=== PATIENT | male | born 1955 | race African-American/Black ===

== ENCOUNTER 2019-08-08 14:01 | Inpatient (IN) | payer MEDICAID, OTHER ==
[~2019-08-08] VITALS: Ht 154.7 cm; Wt 84.0 kg
[2019-08-08] MEDS ORDERED: MULT-1192 PO (14:09)
[2019-08-08] MEDS ORDERED: LOSA25TA41 PO (14:11)
[2019-08-08] MEDS ORDERED: METO50 PO (14:11)
[2019-08-08] MEDS ORDERED: P-EP-31 PO (14:11)
[2019-08-08] MEDS ORDERED: LORA10TA7 PO (14:11)
[2019-08-08] MEDS ORDERED: AMLO5TAB9 PO (14:11)
[2019-08-08 15:50] LABS: EOSINOPHILS % (AUTO) 1.5 % (1.0-6.0); HEMATOCRIT 39.9 % (41-53); HEMOGLOBIN 13.5 g/dL (13.5-17.5); LYMPHOCYTES % (AUTO) 30.6 % (22.0-44.0); MEAN CORPUSCULAR HEMOGLOBIN 36.3 pg (26.0-34.0); MEAN CORPUSCULAR HGB CONC 33.8 G/dL (31.0-37.0); MEAN CORPUSCULAR VOLUME 107 fL (80-100); MONOCYTES # (AUTO) 0.9 K/uL (0.1-1.0); MONOCYTES % (AUTO) 13.3 % (2.0-9.0); NEUTROPHILS # (AUTO) 3.5 K/uL (1.8-7.7); NEUTROPHILS % (AUTO) 53.6 % (40.0-70.0); PLATELET COUNT (AUTO) 130 K/uL (150-450); RED BLOOD CELL COUNT(AUTO) 3.71 MIL/uL (4.50-5.90); RED CELL DISTRIBUTION WIDTH 14.6 % (11.5-14.5)
[2019-08-08 15:59] LABS: CALCIUM, TOTAL 8.8 mg/dL (8.8-10.5); CREATININE 2.93 mg/dL (0.60-1.30); POTASSIUM 3.5 mmol/L (3.5-5.1)
[2019-08-08 16:05] LABS: ALBUMIN 2.5 g/dL (3.4-5.0); BILIRUBIN,TOTAL 1.3 mg/dL (0.1-1.0); TOTAL PROTEIN, SERUM 8.5 g/dL (6.4-8.2)
[2019-08-08 16:14] LABS: PLATELET MORPHOLOGY COMMENT DECREASED
[2019-08-08] MEDS ORDERED: ASPIRIN 81 MG CHEWABLE TABLET PO ONE (16:45)
[2019-08-08 17:43] LABS: AMPHET/METH SCREEN,URINE NEGATIVE (NEGATIVE); BARBITURATE SCREEN, URINE NEGATIVE (NEGATIVE); BENZODIAZEPINES SCREEN,URINE NEGATIVE (NEGATIVE); CANNABINOID SCREEN,URINE NEGATIVE (NEGATIVE); COCAINE SCREEN,URINE NEGATIVE (NEGATIVE); METHADONE SCREEN, URINE NEGATIVE (NEGATIVE); OPIATE SCREEN,URINE NEGATIVE (NEGATIVE)
[2019-08-08 17:44] LABS: PHENCYCLIDINE SCREEN,URINE NEGATIVE (NEGATIVE)
[2019-08-08] MEDS ORDERED: LORazepam 2 MG TABLET PO PRN (19:30)
[2019-08-08] MEDS ORDERED: HALOPERIDOL 5 MG TABLET PO PRN (19:30)
[2019-08-08] MEDS ORDERED: SODIUM CHLORIDE 0.9% 250 ML IV ONE (19:30)
[2019-08-08 21:15] VITALS: BP 155/96
[2019-08-08] MEDS: AmLODIPine BESYLATE 5 MG TABLET PO SCH (21:25)
[2019-08-08 21:46] VITALS: BP 155/96
[2019-08-08] MEDS: ZOLPIDEM TARTRATE 10 MG TABLET PO PRN (21:49)
[2019-08-08] MEDS ORDERED: PNEUMOCOCCAL VACCINE POLYVALENT 0.5 ML VIAL [PPSV23] IM ONE (22:15)
[2019-08-08] MEDS ORDERED: INFLUENZA VIRUS VACCINE QVS 2019-20 (3YR+)/PF 60 MCG/0.5 ML SYRINGE IM ONE (22:30)
[2019-08-09 08:53] VITALS: BP 165/106
[2019-08-09 09:03] VITALS: BP 165/106
[2019-08-09] MEDS: AmLODIPine BESYLATE 5 MG TABLET PO SCH (10:09)
[2019-08-09] MEDS: METOPROLOL TARTRATE 50 MG TABLET PO SCH (10:11)
[2019-08-09] MEDS ORDERED: ACETAMINOPHEN 325 MG TABLET PO PRN (10:15)
[2019-08-09] MEDS ORDERED: ALBUTEROL SULFATE HFA 90 MCG/PUFF 8 GM INHALER IH PRN (10:15)
[2019-08-09] MEDS ORDERED: CloNIDine HCL 0.1 MG TABLET PO PRN (10:15)
[2019-08-09] MEDS ORDERED: IBUPROFEN 400 MG TABLET PO PRN (10:15)
[2019-08-09] MEDS ORDERED: LOPERAMIDE HCL 2 MG CAPSULE PO PRN (10:15)
[2019-08-09] MEDS ORDERED: DOCUSATE SODIUM 100 MG CAPSULE PO PRN (10:15)
[2019-08-09] MEDS ORDERED: ONDANSETRON HCL 4 MG TABLET PO PRN (10:15)
[2019-08-09] MEDS ORDERED: NICOTINE 14 MG/24 HOUR PATCH TD PRN (10:15)
[2019-08-09] MEDS ORDERED: MAGNESIUM HYDROXIDE SUSPENSION 30 ML UDCUP PO PRN (10:15)
[2019-08-09] MEDS ORDERED: GuaiFENesin/D-METHORPHAN [SUGAR-FREE] 200-20MG/10 ML SYRUP UDCUP PO PRN (10:15)
[2019-08-09] MEDS ORDERED: PETROLATUM,WHITE 28 GM JELLY TP PRN (10:15)
[2019-08-09] MEDS ORDERED: MAG HYDROX/AL HYDROX/SIMETH ES 30 ML SUSPENSION UDCUP PO PRN (10:15)
[2019-08-09] MEDS ORDERED: OLANZapine 5 MG TABLET PO SCH (21:00)
[2019-08-09] MEDS: ZOLPIDEM TARTRATE 10 MG TABLET PO PRN (21:04)
[2019-08-09 22:18] VITALS: BP 144/90
[2019-08-09 22:22] VITALS: BP 144/90
[2019-08-10 09:00] VITALS: BP 112/78
[2019-08-10] MEDS: MULTIVITAMINS, THERAPEUTIC TABLET PO SCH (09:16)
[2019-08-10] MEDS: METOPROLOL TARTRATE 50 MG TABLET PO SCH (09:16)
[2019-08-10] MEDS: AmLODIPine BESYLATE 5 MG TABLET PO SCH (09:16)
[2019-08-10] MEDS: OLANZapine 5 MG TABLET PO SCH (12:17)
[2019-08-10 16:30] VITALS: BP 130/82
[2019-08-10] MEDS: ZOLPIDEM TARTRATE 10 MG TABLET PO PRN (20:36)
[2019-08-10] MEDS: OLANZapine 10 MG TABLET PO SCH (20:36)
[2019-08-11 08:00] VITALS: BP 133/100
[2019-08-11] MEDS: MULTIVITAMINS, THERAPEUTIC TABLET PO SCH (08:40)
[2019-08-11] MEDS: OLANZapine 5 MG TABLET PO SCH (08:41)
[2019-08-11] MEDS: AmLODIPine BESYLATE 5 MG TABLET PO SCH (08:41)
[2019-08-11] MEDS: METOPROLOL TARTRATE 50 MG TABLET PO SCH (08:41)
[2019-08-11 18:33] VITALS: BP 114/82
[2019-08-11] MEDS: OLANZapine 10 MG TABLET PO SCH (20:55)
[2019-08-12 07:49] LABS: CALCIUM, TOTAL 8.7 mg/dL (8.8-10.5); CREATININE 1.85 mg/dL (0.60-1.30); POTASSIUM 4.1 mmol/L (3.5-5.1)
[2019-08-12 08:59] VITALS: BP 120/42
[2019-08-12] MEDS: MULTIVITAMINS, THERAPEUTIC TABLET PO SCH (09:30)
[2019-08-12] MEDS: AmLODIPine BESYLATE 5 MG TABLET PO SCH (09:30)
[2019-08-12] MEDS: OLANZapine 5 MG TABLET PO SCH (09:30)
[2019-08-12] MEDS: METOPROLOL TARTRATE 50 MG TABLET PO SCH (09:30)
[2019-08-12 16:30] VITALS: BP 147/91
[2019-08-12] MEDS: OLANZapine 10 MG TABLET PO SCH (17:15)
[2019-08-12] MEDS: ZOLPIDEM TARTRATE 10 MG TABLET PO PRN (20:50)
[2019-08-13 01:26] VITALS: BP 130/99
[2019-08-13 08:49] VITALS: BP 139/83
[2019-08-13] MEDS: OLANZapine 10 MG TABLET PO SCH ×2 (09:25→17:00)
[2019-08-13] MEDS: AmLODIPine BESYLATE 5 MG TABLET PO SCH (09:26)
[2019-08-13] MEDS: MULTIVITAMINS, THERAPEUTIC TABLET PO SCH (09:26)
[2019-08-13] MEDS: METOPROLOL TARTRATE 50 MG TABLET PO SCH (09:26)
[2019-08-13] MEDS ORDERED: RisperiDONE 2 MG TABLET PO SCH (13:30)
[2019-08-13] MEDS ORDERED: ESCITALOPRAM OXALATE 20 MG TABLET PO SCH (13:30)
[2019-08-13] MEDS: BuPROPion HCL XL 150 MG ER TABLET PO SCH (14:29)
[2019-08-13 18:30] VITALS: BP 130/77
[2019-08-14 00:05] VITALS: BP_SYST 139; BP_SYST 159; BP_DIAS 69; BP_DIAS 75
[2019-08-14] MEDS: OLANZapine 10 MG TABLET PO SCH ×2 (08:29→16:38)
[2019-08-14] MEDS: AmLODIPine BESYLATE 5 MG TABLET PO SCH (08:29)
[2019-08-14] MEDS: MULTIVITAMINS, THERAPEUTIC TABLET PO SCH (08:29)
[2019-08-14] MEDS: BuPROPion HCL XL 150 MG ER TABLET PO SCH (08:29)
[2019-08-14] MEDS: METOPROLOL TARTRATE 50 MG TABLET PO SCH (08:29)
[2019-08-14 08:55] VITALS: BP 141/84
[2019-08-14 21:09] VITALS: BP 135/84
[2019-08-15 08:39] VITALS: BP 145/99
[2019-08-15] MEDS: AmLODIPine BESYLATE 5 MG TABLET PO SCH (08:43)
[2019-08-15] MEDS: MULTIVITAMINS, THERAPEUTIC TABLET PO SCH (08:43)
[2019-08-15] MEDS: METOPROLOL TARTRATE 50 MG TABLET PO SCH (08:43)
[2019-08-15] MEDS: OLANZapine 10 MG TABLET PO SCH ×2 (08:43→16:37)
[2019-08-15] MEDS: BuPROPion HCL XL 150 MG ER TABLET PO SCH (08:43)
[2019-08-15 17:54] VITALS: BP 142/91
[2019-08-15] MEDS: ZOLPIDEM TARTRATE 10 MG TABLET PO PRN (21:04)
[2019-08-16 01:00] VITALS: BP 155/99
[2019-08-16 06:23] LABS: CALCIUM, TOTAL 8.2 mg/dL (8.8-10.5); CREATININE 1.76 mg/dL (0.60-1.30); POTASSIUM 3.8 mmol/L (3.5-5.1)
[2019-08-16 08:53] VITALS: BP 130/81
[2019-08-16] MEDS: MULTIVITAMINS, THERAPEUTIC TABLET PO SCH (09:14)
[2019-08-16] MEDS: METOPROLOL TARTRATE 50 MG TABLET PO SCH (09:14)
[2019-08-16] MEDS: BuPROPion HCL XL 150 MG ER TABLET PO SCH (09:14)
[2019-08-16] MEDS: AmLODIPine BESYLATE 5 MG TABLET PO SCH (09:14)
[2019-08-16] MEDS: OLANZapine 10 MG TABLET PO SCH (09:14)
[2019-08-16] MEDS: OLANZapine 7.5 MG TABLET PO SCH (17:27)
[2019-08-16 17:58] VITALS: BP 129/80
[2019-08-17 09:03] VITALS: BP 97/61
[2019-08-17] MEDS: BuPROPion HCL XL 150 MG ER TABLET PO SCH (09:08)
[2019-08-17] MEDS: MULTIVITAMINS, THERAPEUTIC TABLET PO SCH (09:08)
[2019-08-17] MEDS: AmLODIPine BESYLATE 5 MG TABLET PO SCH (09:08)
[2019-08-17] MEDS: METOPROLOL TARTRATE 50 MG TABLET PO SCH (09:08)
[2019-08-17] MEDS: OLANZapine 7.5 MG TABLET PO SCH (09:09)
[2019-08-17 16:30] VITALS: BP_SYST 134; BP_SYST 97; BP_DIAS 61; BP_DIAS 77
[2019-08-17] MEDS: OLANZapine 10 MG TABLET PO SCH (16:35)
[2019-08-18 03:36] VITALS: BP 131/77
[2019-08-18 08:00] VITALS: BP 136/91
[2019-08-18] MEDS: BuPROPion HCL XL 150 MG ER TABLET PO SCH (09:36)
[2019-08-18] MEDS: AmLODIPine BESYLATE 5 MG TABLET PO SCH (09:36)
[2019-08-18] MEDS: OLANZapine 10 MG TABLET PO SCH (09:36)
[2019-08-18] MEDS: MULTIVITAMINS, THERAPEUTIC TABLET PO SCH (09:36)
[2019-08-18] MEDS: METOPROLOL TARTRATE 50 MG TABLET PO SCH (09:36)
[2019-08-18] MEDS ORDERED: OLAN10TA3 PO (10:58)
[2019-08-18] MEDS ORDERED: BUPR-93 PO (10:58)
== END 2019-08-18 15:17 | disposition home or self-care (01) | DRG 750 ==
LOC: EMS 14:05 → 3EI 19:55
PROVIDERS: ADMIT Psychiatry & Neurology Psychiatry; ATTEND Psychiatry & Neurology Psychiatry
DX: F25.9 Schizoaffective disorder, unspecified (principal); R45.851 Suicidal ideations; R74.0 Nonspecific elevation of levels of transaminase and lactic acid dehydrogenase [LDH]; Z23 Encounter for immunization; E78.5 Hyperlipidemia, unspecified; F10.10 Alcohol abuse, uncomplicated; F60.0 Paranoid personality disorder; I12.9 Hypertensive chronic kidney disease with stage 1 through stage 4 chronic kidney disease, or unspecified chronic kidney disease; N18.9 Chronic kidney disease, unspecified; Z59.0 Homelessness
CPT/HCPCS: 90686; 93005; G0480; J7050

== ENCOUNTER 2019-09-06 17:04 | Inpatient (IN) | payer MEDICAID, OTHER ==
[~2019-09-06] VITALS: Ht 175.3 cm; Wt 83.0 kg
[~2019-09-06 17:04] MED LIST: AMLO5TAB9 PO; BUPR-93 PO; METO50 PO; MULT-1192 PO; OLAN10TA3 PO
[2019-09-06] MEDS ORDERED: HALOPERIDOL 5 MG TABLET PO PRN (21:00)
[2019-09-06] MEDS ORDERED: AmLODIPine BESYLATE 5 MG TABLET PO ONE (21:30)
[2019-09-06] MEDS ORDERED: BuPROPion HCL XL 150 MG ER TABLET PO ONE (21:30)
[2019-09-06] MEDS ORDERED: OLANZapine 5 MG TABLET PO ONE (21:30)
[2019-09-06 21:53] LABS: APPEARANCE,URINE CLEAR (CLEAR); BILIRUBIN,URINE NEGATIVE (NEGATIVE); GLUCOSE, URINE (UA) 100 mg/dL (NEGATIVE); KETONES,URINE NEGATIVE (NEGATIVE); LEUKOCYTE ESTERASE ,URINE NEGATIVE (NEGATIVE); NITRATE,URINE NEGATIVE (NEGATIVE); OCCULT BLOOD,URINE NEGATIVE (NEGATIVE); PH,URINE 5.5 (5.0-8.0); PROTEIN,URINE NEGATIVE (NEGATIVE)
[2019-09-06 22:11] LABS: ANION GAP 8 mmol/L (8-16); CALCIUM, TOTAL 8.7 mg/dL (8.8-10.5); CARBON DIOXIDE 24 mmol/L (22-29); CHLORIDE 107 mmol/L (98-107); CREATININE 2.41 mg/dL (0.60-1.30); GLOMERULAR FILTR. RATE CALC 33 mL/min (>60); GLUCOSE,RANDOM 188 mg/dL (70-110); POTASSIUM 3.6 mmol/L (3.5-5.1); SODIUM SERUM 139 mmol/L (136-145); UREA NITROGEN, BLOOD 51 mg/dL (7-18)
[2019-09-06 22:13] LABS: AMPHET/METH SCREEN,URINE NEGATIVE (NEGATIVE); BARBITURATE SCREEN, URINE NEGATIVE (NEGATIVE); BENZODIAZEPINES SCREEN,URINE NEGATIVE (NEGATIVE); CANNABINOID SCREEN,URINE NEGATIVE (NEGATIVE); COCAINE SCREEN,URINE NEGATIVE (NEGATIVE); METHADONE SCREEN, URINE NEGATIVE (NEGATIVE); OPIATE SCREEN,URINE NEGATIVE (NEGATIVE); PHENCYCLIDINE SCREEN,URINE NEGATIVE (NEGATIVE)
[2019-09-06 22:17] LABS: ALANINE AMINOTRANSFERASE 162 U/L (12-78); ALBUMIN 2.4 g/dL (3.4-5.0); ALKALINE PHOSPHATASE 187 U/L (46-116); ASPARTATE AMINOTRANSFERASE 216 U/L (15-37); TOTAL PROTEIN, SERUM 8.7 g/dL (6.4-8.2)
[2019-09-06 22:30] LABS: BASOPHILS % (AUTO) 1.1 % (0.0-2.0); EOSINOPHILS % (AUTO) 3.3 % (1.0-6.0); HEMATOCRIT 38.1 % (41-53); MEAN CORPUSCULAR HEMOGLOBIN 36.8 pg (26.0-34.0); MEAN CORPUSCULAR HGB CONC 34.2 G/dL (31.0-37.0); MEAN CORPUSCULAR VOLUME 108 fL (80-100); MONOCYTES # (AUTO) 0.9 K/uL (0.1-1.0); MONOCYTES % (AUTO) 13.3 % (2.0-9.0); NEUTROPHILS # (AUTO) 3.8 K/uL (1.8-7.7); NEUTROPHILS % (AUTO) 53.3 % (40.0-70.0); PLATELET COUNT (AUTO) 122 K/uL (150-450); RED BLOOD CELL COUNT(AUTO) 3.55 MIL/uL (4.50-5.90); RED CELL DISTRIBUTION WIDTH 14.8 % (11.5-14.5)
[2019-09-06 23:03] LABS: BACTERIA,URINE None Seen /HPF (None Seen); RBC,URINE None Seen /HPF (0-2); SQUAMOUS EPITHELIAL CELL,UR Moderate /LPF (None Seen); WBC,URINE 0-2 /HPF (0-5)
[2019-09-07 03:11] LABS: CHOL/HDL RATIO 4.3 (4.2-7.3); CHOLESTEROL 165 mg/dL (131-200); HDL CHOLESTEROL 38 mg/dL (40-60); LDL CHOL (CALC.) 79 mg/dL (0-130); TRIGLYCERIDES 239 mg/dL (15-150)
[2019-09-07] MEDS ORDERED: ONDANSETRON HCL 4 MG TABLET PO PRN (07:00)
[2019-09-07] MEDS ORDERED: NICOTINE 14 MG/24 HOUR PATCH TD PRN (07:00)
[2019-09-07] MEDS ORDERED: PETROLATUM,WHITE 28 GM JELLY TP PRN (07:00)
[2019-09-07] MEDS ORDERED: ALBUTEROL SULFATE HFA 90 MCG/PUFF 8 GM INHALER IH PRN (07:00)
[2019-09-07] MEDS ORDERED: IBUPROFEN 400 MG TABLET PO PRN (07:00)
[2019-09-07] MEDS ORDERED: MAG HYDROX/AL HYDROX/SIMETH ES 30 ML SUSPENSION UDCUP PO PRN (07:00)
[2019-09-07] MEDS ORDERED: LOPERAMIDE HCL 2 MG CAPSULE PO PRN (07:00)
[2019-09-07] MEDS ORDERED: CloNIDine HCL 0.1 MG TABLET PO PRN (07:00)
[2019-09-07] MEDS ORDERED: GuaiFENesin/D-METHORPHAN [SUGAR-FREE] 200-20MG/10 ML SYRUP UDCUP PO PRN (07:00)
[2019-09-07] MEDS ORDERED: DOCUSATE SODIUM 100 MG CAPSULE PO PRN (07:00)
[2019-09-07] MEDS ORDERED: MAGNESIUM HYDROXIDE SUSPENSION 30 ML UDCUP PO PRN (07:00)
[2019-09-07 09:05] VITALS: BP 148/90
[2019-09-07] MEDS ORDERED: PNEUMOCOCCAL VACCINE POLYVALENT 0.5 ML VIAL [PPSV23] IM ONE (11:45)
[2019-09-07] MEDS: OLANZapine 10 MG TABLET PO SCH ×2 (13:54→17:45)
[2019-09-07] MEDS: BuPROPion HCL XL 150 MG ER TABLET PO SCH (13:55)
[2019-09-07 16:30] VITALS: BP 148/94
[2019-09-08 08:41] VITALS: BP 143/81
[2019-09-08] MEDS: METOPROLOL TARTRATE 50 MG TABLET PO SCH (09:59)
[2019-09-08] MEDS: BuPROPion HCL XL 150 MG ER TABLET PO SCH (09:59)
[2019-09-08] MEDS: AmLODIPine BESYLATE 5 MG TABLET PO SCH (10:00)
[2019-09-08] MEDS: OLANZapine 10 MG TABLET PO SCH ×2 (10:00→16:54)
[2019-09-08 20:14] VITALS: BP 109/71
[2019-09-09] MEDS: ZOLPIDEM TARTRATE 10 MG TABLET PO PRN (00:23)
[2019-09-09 05:00] VITALS: BP 148/91
[2019-09-09 09:40] VITALS: BP 145/103
[2019-09-09] MEDS: METOPROLOL TARTRATE 50 MG TABLET PO SCH (09:44)
[2019-09-09] MEDS: OLANZapine 10 MG TABLET PO SCH ×2 (09:44→17:05)
[2019-09-09] MEDS: BuPROPion HCL XL 150 MG ER TABLET PO SCH (09:44)
[2019-09-09] MEDS: AmLODIPine BESYLATE 5 MG TABLET PO SCH (09:44)
[2019-09-09 14:34] VITALS: BP 138/71
[2019-09-09 19:34] VITALS: BP 139/92
[2019-09-10] MEDS: LORazepam 2 MG TABLET PO PRN (00:55)
[2019-09-10 02:34] VITALS: BP 151/89
[2019-09-10 09:40] VITALS: BP 149/112
[2019-09-10] MEDS: AmLODIPine BESYLATE 5 MG TABLET PO SCH (09:44)
[2019-09-10] MEDS: OLANZapine 10 MG TABLET PO SCH ×2 (09:44→16:17)
[2019-09-10] MEDS: METOPROLOL TARTRATE 50 MG TABLET PO SCH (09:44)
[2019-09-10] MEDS: BuPROPion HCL XL 150 MG ER TABLET PO SCH (09:44)
[2019-09-10 13:01] VITALS: BP 128/76
[2019-09-10 19:35] VITALS: BP 139/78
[2019-09-11 08:00] VITALS: BP 114/69
[2019-09-11] MEDS: AmLODIPine BESYLATE 5 MG TABLET PO SCH (09:29)
[2019-09-11] MEDS: METOPROLOL TARTRATE 50 MG TABLET PO SCH (09:29)
[2019-09-11] MEDS: OLANZapine 10 MG TABLET PO SCH ×2 (09:29→16:03)
[2019-09-11] MEDS: BuPROPion HCL XL 150 MG ER TABLET PO SCH (09:29)
[2019-09-11 18:06] VITALS: BP 149/93
[2019-09-12 08:10] LABS: CALCIUM, TOTAL 8.4 mg/dL (8.8-10.5); CREATININE 2.13 mg/dL (0.60-1.30)
[2019-09-12] MEDS: BuPROPion HCL XL 150 MG ER TABLET PO SCH (09:54)
[2019-09-12] MEDS: METOPROLOL TARTRATE 50 MG TABLET PO SCH (09:54)
[2019-09-12] MEDS: OLANZapine 10 MG TABLET PO SCH (09:54)
[2019-09-12] MEDS: AmLODIPine BESYLATE 5 MG TABLET PO SCH (09:54)
[2019-09-12 10:35] VITALS: BP 147/92
[2019-09-12] MEDS ORDERED: BuPROPion HCL XL 150 MG ER TABLET PO ONE (13:15)
[2019-09-12 17:08] VITALS: BP 137/80
[2019-09-12] MEDS: ZOLPIDEM TARTRATE 10 MG TABLET PO PRN (20:19)
[2019-09-13] MEDS: BuPROPion HCL XL 150 MG ER TABLET PO SCH (09:20)
[2019-09-13] MEDS: METOPROLOL TARTRATE 50 MG TABLET PO SCH (09:21)
[2019-09-13] MEDS: AmLODIPine BESYLATE 5 MG TABLET PO SCH (09:22)
[2019-09-13 09:31] VITALS: BP 134/72
[2019-09-13] MEDS: OMEGA-3/DHA/EPA/FISH OIL 1,000 MG CAPSULE PO SCH ×2 (13:45→13:59)
[2019-09-13] MEDS: OLANZapine 10 MG TABLET PO SCH (16:15)
[2019-09-13 17:51] VITALS: BP 146/88
[2019-09-13] MEDS: ZOLPIDEM TARTRATE 10 MG TABLET PO PRN (22:14)
[2019-09-14] MEDS: LORazepam 2 MG TABLET PO PRN
[2019-09-14 00:02] VITALS: BP 138/71
[2019-09-14] MEDS: ACETAMINOPHEN 325 MG TABLET PO PRN ×2 (02:56→14:12)
[2019-09-14 07:28] LABS: HEMOGLOBIN A1C 6.7 % (4.5-6.2)
[2019-09-14 07:31] LABS: CALCIUM, TOTAL 8.6 mg/dL (8.8-10.5); CREATININE 1.94 mg/dL (0.60-1.30); POTASSIUM 4.2 mmol/L (3.5-5.1)
[2019-09-14] MEDS: AmLODIPine BESYLATE 5 MG TABLET PO SCH (08:11)
[2019-09-14] MEDS: OMEGA-3/DHA/EPA/FISH OIL 1,000 MG CAPSULE PO SCH (08:11)
[2019-09-14] MEDS: OLANZapine 10 MG TABLET PO SCH ×2 (08:11→16:21)
[2019-09-14] MEDS: METOPROLOL TARTRATE 50 MG TABLET PO SCH (08:11)
[2019-09-14] MEDS: BuPROPion HCL XL 150 MG ER TABLET PO SCH (08:11)
[2019-09-14 08:51] VITALS: BP 152/105
[2019-09-14 17:00] VITALS: BP 148/89
[2019-09-15 03:47] VITALS: BP 147/74
[2019-09-15] MEDS: LORazepam 2 MG TABLET PO PRN (03:49)
[2019-09-15] MEDS: OMEGA-3/DHA/EPA/FISH OIL 1,000 MG CAPSULE PO SCH (09:27)
[2019-09-15] MEDS: AmLODIPine BESYLATE 5 MG TABLET PO SCH (09:27)
[2019-09-15] MEDS: BuPROPion HCL XL 150 MG ER TABLET PO SCH (09:27)
[2019-09-15] MEDS: METOPROLOL TARTRATE 50 MG TABLET PO SCH (09:28)
[2019-09-15] MEDS: OLANZapine 10 MG TABLET PO SCH ×2 (09:28→17:00)
[2019-09-15 09:46] VITALS: BP 147/93
[2019-09-15 16:30] VITALS: BP 149/93
[2019-09-16] MEDS: AmLODIPine BESYLATE 5 MG TABLET PO SCH (08:51)
[2019-09-16] MEDS: METOPROLOL TARTRATE 50 MG TABLET PO SCH (08:51)
[2019-09-16] MEDS: BuPROPion HCL XL 150 MG ER TABLET PO SCH (08:51)
[2019-09-16] MEDS: OMEGA-3/DHA/EPA/FISH OIL 1,000 MG CAPSULE PO SCH (08:51)
[2019-09-16] MEDS: OLANZapine 10 MG TABLET PO SCH ×2 (08:51→16:21)
[2019-09-16 09:05] VITALS: BP 145/96
[2019-09-16 16:20] VITALS: BP 117/76
[2019-09-17 02:16] VITALS: BP 128/75
[2019-09-17 08:50] VITALS: BP 156/94
[2019-09-17] MEDS: METOPROLOL TARTRATE 50 MG TABLET PO SCH (09:30)
[2019-09-17] MEDS: AmLODIPine BESYLATE 5 MG TABLET PO SCH (09:30)
[2019-09-17] MEDS: OLANZapine 10 MG TABLET PO SCH ×2 (09:30→16:24)
[2019-09-17] MEDS: BuPROPion HCL XL 150 MG ER TABLET PO SCH (09:30)
[2019-09-17] MEDS: OMEGA-3/DHA/EPA/FISH OIL 1,000 MG CAPSULE PO SCH (09:30)
[2019-09-17 18:15] VITALS: BP 133/76
[2019-09-18 08:30] VITALS: BP 138/89
[2019-09-18] MEDS: OMEGA-3/DHA/EPA/FISH OIL 1,000 MG CAPSULE PO SCH (09:00)
[2019-09-18] MEDS: BuPROPion HCL XL 150 MG ER TABLET PO SCH (09:45)
[2019-09-18] MEDS: OLANZapine 10 MG TABLET PO SCH ×2 (09:46→16:45)
[2019-09-18] MEDS: AmLODIPine BESYLATE 5 MG TABLET PO SCH (09:46)
[2019-09-18] MEDS: METOPROLOL TARTRATE 50 MG TABLET PO SCH (09:46)
[2019-09-18 17:23] VITALS: BP 120/66
[2019-09-19 00:24] VITALS: BP 147/89
[2019-09-19 08:00] VITALS: BP 130/84
[2019-09-19] MEDS: OMEGA-3/DHA/EPA/FISH OIL 1,000 MG CAPSULE PO SCH (09:00)
[2019-09-19] MEDS: BuPROPion HCL XL 150 MG ER TABLET PO SCH (10:14)
[2019-09-19] MEDS: OLANZapine 10 MG TABLET PO SCH ×2 (10:14→16:13)
[2019-09-19] MEDS: METOPROLOL TARTRATE 50 MG TABLET PO SCH (10:15)
[2019-09-19] MEDS: AmLODIPine BESYLATE 5 MG TABLET PO SCH (10:15)
[2019-09-19 18:04] VITALS: BP 101/60
[2019-09-20 07:14] LABS: CALCIUM, TOTAL 8.4 mg/dL (8.8-10.5); CREATININE 1.91 mg/dL (0.60-1.30); POTASSIUM 4.1 mmol/L (3.5-5.1)
[2019-09-20 08:30] VITALS: BP 149/90
[2019-09-20] MEDS: AmLODIPine BESYLATE 5 MG TABLET PO SCH (08:47)
[2019-09-20] MEDS: OLANZapine 10 MG TABLET PO SCH ×2 (08:48→16:13)
[2019-09-20] MEDS: METOPROLOL TARTRATE 50 MG TABLET PO SCH (08:48)
[2019-09-20] MEDS: BuPROPion HCL XL 150 MG ER TABLET PO SCH (08:53)
[2019-09-20] MEDS: OMEGA-3/DHA/EPA/FISH OIL 1,000 MG CAPSULE PO SCH (08:55)
[2019-09-20 16:30] VITALS: BP 134/80
[2019-09-21] MEDS: OMEGA-3/DHA/EPA/FISH OIL 1,000 MG CAPSULE PO SCH (09:00)
[2019-09-21 09:21] VITALS: BP 164/96
[2019-09-21] MEDS: AmLODIPine BESYLATE 5 MG TABLET PO SCH (09:39)
[2019-09-21] MEDS: BuPROPion HCL XL 150 MG ER TABLET PO SCH (09:39)
[2019-09-21] MEDS: OLANZapine 10 MG TABLET PO SCH ×2 (09:39→16:11)
[2019-09-21] MEDS: METOPROLOL TARTRATE 50 MG TABLET PO SCH (09:39)
[2019-09-21 16:50] VITALS: BP 107/69
[2019-09-22] MEDS: OMEGA-3/DHA/EPA/FISH OIL 1,000 MG CAPSULE PO SCH (08:10)
[2019-09-22] MEDS: BuPROPion HCL XL 150 MG ER TABLET PO SCH (08:10)
[2019-09-22] MEDS: OLANZapine 10 MG TABLET PO SCH ×2 (08:11→16:02)
[2019-09-22] MEDS: AmLODIPine BESYLATE 5 MG TABLET PO SCH (08:12)
[2019-09-22] MEDS: METOPROLOL TARTRATE 50 MG TABLET PO SCH (08:12)
[2019-09-22 08:48] VITALS: BP 155/86
[2019-09-22] MEDS ORDERED: OLAN5TAB2 PO (13:02)
== END 2019-09-22 17:00 | disposition home or self-care (01) | DRG 885 ==
LOC: EMS 17:07 → 3EI 09-07 08:45
PROVIDERS: ADMIT Psychiatry & Neurology Psychiatry; ATTEND Psychiatry & Neurology Psychiatry
DX: F25.1 Schizoaffective disorder, depressive type (principal); N18.9 Chronic kidney disease, unspecified; E87.1 Hypo-osmolality and hyponatremia; R45.851 Suicidal ideations; E78.5 Hyperlipidemia, unspecified; F10.10 Alcohol abuse, uncomplicated; F32.9 Major depressive disorder, single episode, unspecified; G47.00 Insomnia, unspecified; I12.9 Hypertensive chronic kidney disease with stage 1 through stage 4 chronic kidney disease, or unspecified chronic kidney disease; K70.30 Alcoholic cirrhosis of liver without ascites; Z91.14 Patient's other noncompliance with medication regimen
CPT/HCPCS: 83036; 87081; 90732; G0480